=== PATIENT | male | born 1970 | race African-American/Black ===

== ENCOUNTER 2016-12-05 07:01 | Observation (INO) | payer OTHER ==
[~2016-12-05] VITALS: Ht 175.3 cm; Wt 120.0 kg
[~2016-12-05 07:01] MED LIST: Z.0.UNKNOWN
[2016-12-05 07:03] VITALS: BP 170/100; PULSE 98; RESP 20; TEMP 98.8; O2SAT 96
[2016-12-05] MEDS ORDERED: diphenhydrAMINE HCL 50 MG/ML VIAL IVP ONE ×2 (08:00→08:45)
[2016-12-05] MEDS ORDERED: SODIUM CHLORIDE 0.9% FLUSH 10 ML FLUSH IV FLUSH PRN ×2 (08:00→10:00)
[2016-12-05] MEDS ORDERED: EPINEPHrine HCL (1:1000) 1 MG/ML VIAL IM ONE ×2 (08:00→08:45)
[2016-12-05] MEDS ORDERED: methylPREDNISolone SOD SUCC 125 MG/2 ML VIAL IVP ONE (08:00)
[2016-12-05] MEDS ORDERED: FAMOTIDINE 20 MG/2 ML VIAL IV PUSH ONE (08:00)
--- NOTE | 2016-12-05 08:01 | PD ---
HPI Chief Complaint: Facial Pain or Swelling Time Seen by Provider: 07:43 Travel History International Travel<30 days: No Contact w/Intl Traveler<30days: No Traveled to known affect area: No History of Present Illness HPI This patient developed swelling of his lips yesterday at 6 PM. He took a Benadryl at 9 PM but woke up this morning with progression and worsening of the swelling. Symptoms are moderately severe. He takes lisinopril for the last 2 years but has never had a problem with it. No other new medications. No alleviating factors. Duration 13 hours. He is not sure if his tongue is swollen as well. He's never had this kind of problem. He is not having rash or hives elsewhere on his body PFSH Past Medical History Arthritis: No Asthma: No Autoimmune Disease: No Blood Disorders: No Anxiety: No Depression: No Heart Rhythm Problems: No Cancer: No Cardiovascular Problems: No High Cholesterol: Yes Chemotherapy: No Chest Pain: No Congestive Heart Failure: No COPD: No Cerebrovascular Accident: No Diabetes: Yes Patient Takes Glucophage: Yes Diminished Hearing: No Endocrine: Yes GERD: Yes Glaucoma: No Genitourinary: No Headaches: Yes Hepatitis: No Hiatal Hernia: No Hypertension: Yes Immune Disorder: No Kidney Stones: No Musculoskeletal: No Neurologic: Yes Psychiatric: Yes (PTSD) Reproductive: No Respiratory: Yes Migraines: No Myocardial Infarction: No Radiation Therapy: No Renal Failure: No Seizures: No Sickle Cell Disease: No Sleep Apnea: Yes Thyroid Disease: No Ulcer: No Past Surgical History Abdominal Surgery: No AICD: No Appendectomy: No Arteriovenous Shunt: No Cardiac Surgery: No Cholecystectomy: No Ear Surgery: No Endocrine Surgery: No Eye Surgery: No Genitourinary Surgery: No Gynecologic Surgery: No Insulin Pump: No Joint Replacement: No Oral Surgery: No Pacemaker: No Thoracic Surgery: No Family History Family Hypercholesterolemia: Yes Social History Alcohol Use: Yes Tobacco Use: Yes (ONE CIGAR DAILY) Substance Use: No Allergies-Medications (Allergen,Severity, Reaction): Coded Allergies: Lisinopril (Verified Allergy, Severe, Edema, 12/05/16) Reported Meds & Prescriptions Reported Meds & Active Scripts Active Reported Unknown Meds (Miscellaneous Medication) Misc Review of Systems General / Constitutional: No: Fever Eyes: No: Visual changes HENT: No: Headaches Cardiovascular: No: Chest Pain or Discomfort Respiratory: No: Shortness of Breath Gastrointestinal: No: Abdominal Pain Genitourinary: No: Dysuria Musculoskeletal: No: Pain Skin: Positive Other, No Rash Neurologic: No: Weakness Psychiatric: No: Depression Endocrine: No: Polydipsia Hematologic/Lymphatic: No: Easy Bruising Physical Exam Narrative GENERAL: Well-nourished, well-developed patient in no apparent distress. SKIN: Warm and dry. HEAD: Atraumatic. Normocephalic. EYES: Pupils equal and round. No scleral icterus. No injection or drainage. ENT: No nasal bleeding or discharge. Mucous membranes pink and moist. Has very advanced swelling of the upper and lower lips. Tongue looks a bit thick. Challenging to get a good visualization of the uvula due to swelling and a very prominent gag reflex. Has some swelling in the region of the chin NECK: Trachea midline. No JVD. Has some swelling in the submental region but is not firm or indurated. No redness or warmth. CARDIOVASCULAR: Regular rate and rhythm. No murmur appreciated. RESPIRATORY: No accessory muscle use. Clear to auscultation. Breath sounds equal bilaterally. GASTROINTESTINAL: Abdomen soft, non-tender, nondistended. Hepatic and splenic margins not palpable. MUSCULOSKELETAL: No obvious deformities. No clubbing. No cyanosis. No edema. NEUROLOGICAL: Awake and alert. No obvious cranial nerve deficits. Motor grossly within normal limits. Normal speech. PSYCHIATRIC: Appropriate mood and affect; insight and judgment normal. Data Data Last Documented VS Vital Signs Date Time Temp Pulse Resp B/P Pulse Ox O2 Delivery O2 Flow Rate FiO2 12/05/16 08:21 99 Room Air 12/05/16 07:29 96 18 12/05/16 07:03 98.8 170/100 Orders Ecg Monitoring (12/05/16 07:52) Iv Access Insert/Monitor (12/05/16 07:52) Oximetry (12/05/16 07:52) Diphenhydramine Inj (Benadryl Inj) (12/05/16 08:00) Methylprednisolone So Succ Inj (Solumedr (12/05/16 08:00) Famotidine Inj (Pepcid Inj) (12/05/16 08:00) Sodium Chloride 0.9% Flush (Ns Flush) (12/05/16 08:00) Epinephrine (1:1000) Inj (Adrenalin (1:1 (12/05/16 08:00) Complete Blood Count With Diff (12/05/16 07:53) Basic Metabolic Panel (Bmp) (12/05/16 07:53) Diphenhydramine Inj (Benadryl Inj) (12/05/16 08:45) Epinephrine (1:1000) Inj (Adrenalin (1:1 (12/05/16 08:45) Admit Order (Ed Use Only) (12/05/16 10:00) Labs Laboratory Tests Test 12/05/16 08:11 White Blood Count 5.2 TH/MM3 Red Blood Count 4.01 MIL/MM3 Hemoglobin 12.8 GM/DL Hematocrit 38.4 % Mean Corpuscular Volume 95.8 FL Mean Corpuscular Hemoglobin 32.0 PG Mean Corpuscular Hemoglobin 33.4 % Concent Red Cell Distribution Width 15.3 % Platelet Count 214 TH/MM3 Mean Platelet Volume 8.1 FL Neutrophils (%) (Auto) 47.2 % Lymphocytes (%) (Auto) 37.8 % Monocytes (%) (Auto) 13.2 % Eosinophils (%) (Auto) 1.5 % Basophils (%) (Auto) 0.3 % Neutrophils # (Auto) 2.5 TH/MM3 Lymphocytes # (Auto) 2.0 TH/MM3 Monocytes # (Auto) 0.7 TH/MM3 Eosinophils # (Auto) 0.1 TH/MM3 Basophils # (Auto) 0.0 TH/MM3 CBC Comment DIFF FINAL Differential Comment Sodium Level 139 MEQ/L Potassium Level 3.2 MEQ/L Chloride Level 102 MEQ/L Carbon Dioxide Level 27.6 MEQ/L Anion Gap 9 MEQ/L Blood Urea Nitrogen 11 MG/DL Creatinine 0.95 MG/DL Estimat Glomerular Filtration 103 ML/MIN Rate Random Glucose 148 MG/DL Calcium Level 9.2 MG/DL [facility] Medical Decision Making Medical Screen Exam Complete: Yes Emergency Medical Condition: Yes Medical Record Reviewed: Yes Differential Diagnosis Angioedema, allergic reaction, loss of airway Narrative Course I have reviewed the patient's electronic medical record. Patient's last visit was 2010. He has not been here for allergic reaction problems before This patient has some prominent angioedema which is spreading down to the chin and submental region of the neck and very concerning for the potential for airway loss. This makes him critically ill and requiring rapid treatment. IV placed I gave him intramuscular epinephrine and IV Solu-Medrol and IV Benadryl and IV Pepcid Extended cardiac monitoring reveals sinus rhythm without ectopy Initial oximetry is good I'm going to closely follow him over the next hour with frequent rechecks If there is any progression will need to consider intubation to secure airway CBC is normal Metabolic profile shows hypokalemia 3.2 but otherwise normal. Sugar 148 in this diabetic On reevaluation there has been some minor improvement I gave him a second dose of IV Benadryl and a second dose of intramuscular epinephrine Continued reevaluations have been done At 9:30 AM I have reevaluated him he had again and there has been continued improvement. There is less swelling of the lower lip and his tongue is back to normal. However there is still prominent enough swelling to warrant hospitalization. Patient is agreeable. Patient is no longer critically ill but will need to be monitored and get further medications. Reviewed with Dr. Webb who will admit Critical Care Narrative Aggregate critical care time was 35 minutes. Time to perform other separately billable procedures was not included in the critical care time. My time did not include minutes spent treating any other patients simultaneously or on activities that did not directly contribute to the patient's treatment. The services I provided to this patient were to treat and/or prevent clinically significant deterioration that could result in: Loss of airway, cardiopulmonary arrest, airway swelling I provided critical care services requiring my management, as noted below: Chart data review, documentation time, medication orders and management, vital sign assessments/reviewing monitor data, ordering and reviewing lab tests, ordering and interpreting/reviewing x-rays and diagnostic studies, care of the patient and discussion of the patient with the admitting physicians. Diagnosis Primary Impression: Angioedema Qualified Code: T78.3XXA - Angioedema, initial encounter Admitting Information Admitting Physician Requests: it Deion Zarco MD Dec 05, 2016 08:01
[2016-12-05 08:21] VITALS: O2SAT 99
[2016-12-05 08:26] LABS: AUTOMATED NEUTROPHIL # 2.5 TH/MM3 (1.8-7.7); BASOPHIL % 0.3 % (0.0-2.0); EOSINOPHIL # 0.1 TH/MM3 (0-0.4); EOSINOPHIL % 1.5 % (0.0-4.0); HEMATOCRIT 38.4 % (39.0-51.0); HEMO FLAGS DIFF FINAL; LYMPH % 37.8 % (9.0-44.0); MEAN CELL VOLUME 95.8 FL (80.0-100.0); MEAN CORPUSCULAR HGB CONC 33.4 % (32.0-36.0); MONO % 13.2 % (0.0-8.0); NEUT % 47.2 % (16.0-70.0); PLATELET COUNT 214 TH/MM3 (150-450); RED BLOOD COUNT 4.01 MIL/MM3 (4.50-5.90); RED CELL DISTRIBUTION WIDTH 15.3 % (11.6-17.2); WHITE BLOOD COUNT 5.2 TH/MM3 (4.0-11.0)
[2016-12-05 08:50] LABS: BICARBONATE 27.6 MEQ/L (21.0-32.0); POTASSIUM 3.2 MEQ/L (3.5-5.1)
[2016-12-05] MEDS ORDERED: NALOXONE HCL 0.4 MG/ML AMP IV PRN (10:00)
[2016-12-05] MEDS ORDERED: ONDANSETRON HCL 4 MG/2 ML VIAL IVP PRN (10:00)
--- NOTE | 2016-12-05 10:38 | HHI.HP ---
[facility] Primary Care Physician [facility] Admission Diagnosis angioedema Diagnoses: Chief Complaint: swelling of lips and face Travel History International Travel<30 Days: No Contact w/Intl Traveler <30 Da: No Traveled to Known Affected Are: No History of Present Illness This is a 46-year-old male past medical history includes type 2 diabetes, hypertension, hyperlipidemia who presented with swelling of his lower face and lips. Patient stated that at 6:30 PM yesterday he went to work and he felt numbness of left side of lisps, then felt swelling. Patient stated that he did went to the pharmacist and they stated that it was due to his lisinopril and told to take Benadryl. Patient stated that he took 2 tablets of Benadryl and the swelling went away but later he started to have swelling on the right side of the lips. Patient then took 2 more tablets of Benadryl 20 stated that resolved. Patient went to sleep and he woke up with his lips swollen again and his lower face with swelling. Patient stated that he had some shortness of breathing so he went to the emergency department. In the ED patient was given Benadryl, Solu-Medrol and epinephrine. Patient stated that swelling has decreased. He denies any sore shortness of breathing at the moment. Patient states prior from this episode he did not eat anything or tried any new products or medication. He stated that he was in the same routine and that he cannot think of anything that would elicit this episode. Patient has been on lisinopril for many years. Review of Systems Constitutional: DENIES: Diaphoretic episodes, Fatigue, Fever, Weight gain, Weight loss, Chills, Dizziness, Change in appetite, Night Sweats Endocrine: DENIES: Heat/cold intolerance, Polydipsia, Polyuria, Polyphagia Eyes: DENIES: Blurred vision, Diplopia, Eye inflammation, Eye pain, Vision loss , Photosensitivity, Double Vision Ears, nose, mouth, throat: DENIES: Tinnitus, Hearing loss, Vertigo, Nasal discharge, Oral lesions, Throat pain, Hoarseness, Ear Pain, Running Nose, Epistaxis, Sinus Pain, Toothache, Odynophagia Respiratory: DENIES: Apneas, Cough, Snoring, Wheezing, Hemoptysis, Sputum production, Shortness of breath Cardiovascular: DENIES: Chest pain, Palpitations, Syncope, Dyspnea on Exertion , PND, Lower Extremity Edema, Orthopnea, Claudication Gastrointestinal: DENIES: Abdominal pain, Black stools, Bloody stools, Constipation, Diarrhea, Nausea, Vomiting, Difficulty Swallowing, Anorexia Genitourinary: DENIES: Sexual dysfunction, Urinary frequency, Urinary incontinence, Urgency, Hematuria, Dysuria, Nocturia, Penile Discharge, Testicular Pain, Testicular Swelling Musculoskeletal: DENIES: Joint pain, Muscle aches, Stiffness, Joint Swelling, Back pain, Neck pain Integumentary: DENIES: Abnormal pigmentation, Nail changes, Pruritus, Rash Hematologic/lymphatic: DENIES: Bruising, Lymphadenopathy Immunologic/allergic: DENIES: Eczema, Urticaria Neurologic: DENIES: Abnormal gait, Headache, Localized weakness, Paresthesias, Seizures, Speech Problems, Tremor, Poor Balance Psychiatric: DENIES: Anxiety, Confusion, Mood changes, Depression, Hallucinations, Agitation, Suicidal Ideation, Homicidal Ideation, Delusions Positive for lip swelling and lower face swelling. Past Family Social History Past Medical History Hypertension, hyperlipidemia, type 2 diabetes. Past Surgical History Denying past surgical history. Reported Medications Lisinopril Metformin Allergies: Coded Allergies: Lisinopril (Verified Allergy, Severe, Edema, 12/05/16) Active Ordered Medications Current Medications Diphenhydramine HCl (Benadryl Inj) 25 mg ONCE ONCE IVP Last administered on 08:03; Start 12/05/16 at 08:00; Stop 12/05/16 at 08:01; Status DC Methylprednisolone Sodium Succinate (SoluMEDROL INJ) 125 mg ONCE ONCE IVP Last administered on 12/05/16 08:03; Start 12/05/16 at 08:00; Stop 12/05/16 at 08:01; Status DC Famotidine (Pepcid Inj) 20 mg ONCE ONCE IV PUSH Last administered on 08:02; Start 12/05/16 at 08:00; Stop 12/05/16 at 08:01; Status DC Sodium Chloride (NS Flush) 2 ml UNSCH PRN IV FLUSH FLUSH AFTER USING IV ACCESS ; Start 12/05/16 at 08:00; Stop 12/05/16 at 10:09; Status DC Epinephrine HCl (Adrenalin (1:1000) Inj) 0.5 mg ONCE ONCE IM Last administered on 12/05/16 08:02; Start 12/05/16 at 08:00; Stop 12/05/16 at 08:01 ; Status DC Diphenhydramine HCl (Benadryl Inj) 25 mg ONCE ONCE IVP Last administered on 08:53; Start 12/05/16 at 08:45; Stop 12/05/16 at 08:46; Status DC Epinephrine HCl 0.5 mg 0.5 mg ONCE ONCE IM Last administered on 12/05/16 08: 50; Start 12/05/16 at 08:45; Stop 12/05/16 at 08:46; Status DC Sodium Chloride (NS 1000 ml Inj) 1,000 ml @ 100 mls/hr Q10H IV ; Start at 10:00 Sodium Chloride (NS Flush) 2 ml UNSCH PRN IV FLUSH FLUSH AFTER USING IV ACCESS ; Start 12/05/16 at 10:00 Sodium Chloride (NS Flush) 2 ml BID IV FLUSH ; Start 12/05/16 at 21:00 Ondansetron HCl (Zofran Inj) 4 mg Q6H PRN IVP NAUSEA OR VOMITING; Start at 10:00 Naloxone HCl (Narcan Inj) 0.4 mg UNSCH PRN IV SEE LABEL COMMENTS; Start at 10:00 Methylprednisolone Sodium Succinate (SoluMEDROL INJ) 40 mg Q6H IV PUSH ; Start 12/05/16 at 14:00 Diphenhydramine HCl (Benadryl Inj) 25 mg BID IV PUSH ; Start 12/05/16 at 21:00 Family History Father and mother has type 2 diabetes. Otherwise denies any cardiac vascular disease or cancer in the family. Social History Denies any tobacco use. Patient stated that he stopped drinking Friday because his family stated that he drank too much. He would not give me any amount. Denies illicit drug use. Physical Exam Vital Signs Vital Signs Date Time Temp Pulse Resp B/P Pulse Ox O2 Delivery O2 Flow Rate FiO2 12/05/16 08:21 99 Room Air 12/05/16 07:29 96 18 12/05/16 07:03 98.8 98 20 170/100 96 Room Air Physical Exam GENERAL: This is a well-nourished, well-developed patient, in no apparent distress. SKIN: No rashes, ecchymoses or lesions. Cool and dry. HEAD: Atraumatic. Normocephalic. No temporal or scalp tenderness. EYES: Pupils equal round and reactive. Extraocular motions intact. No scleral icterus. No injection or drainage. ENT: Nose without bleeding, purulent drainage or septal hematoma. Throat without erythema, tonsillar hypertrophy or exudate. Uvula midline. Airway patent. + swelling of lips and lower face. NECK: Trachea midline. No JVD or lymphadenopathy. Supple, nontender, no meningeal signs. CARDIOVASCULAR: Regular rate and rhythm without murmurs, gallops, or rubs. RESPIRATORY: Clear to auscultation. Breath sounds equal bilaterally. No wheezes , rales, or rhonchi. GASTROINTESTINAL: Abdomen soft, non-tender, nondistended. No hepato-splenomegaly , or palpable masses. No guarding. MUSCULOSKELETAL: Extremities without clubbing, cyanosis, or edema. No joint tenderness, effusion, or edema noted. No calf tenderness. Negative Homans sign bilaterally. NEUROLOGICAL: Awake and alert. Cranial nerves II through XII intact. Motor and sensory grossly within normal limits. Five out of 5 muscle strength in all muscle groups. Normal speech. Laboratory Laboratory Tests Test 12/05/16 08:11 White Blood Count 5.2 Red Blood Count 4.01 Hemoglobin 12.8 Hematocrit 38.4 Mean Corpuscular Volume 95.8 Mean Corpuscular Hemoglobin 32.0 Mean Corpuscular Hemoglobin 33.4 Concent Red Cell Distribution Width 15.3 Platelet Count 214 Mean Platelet Volume 8.1 Neutrophils (%) (Auto) 47.2 Lymphocytes (%) (Auto) 37.8 Monocytes (%) (Auto) 13.2 Eosinophils (%) (Auto) 1.5 Basophils (%) (Auto) 0.3 Neutrophils # (Auto) 2.5 Lymphocytes # (Auto) 2.0 Monocytes # (Auto) 0.7 Eosinophils # (Auto) 0.1 Basophils # (Auto) 0.0 CBC Comment DIFF FINAL Differential Comment Sodium Level 139 Potassium Level 3.2 Chloride Level 102 Carbon Dioxide Level 27.6 Anion Gap 9 Blood Urea Nitrogen 11 Creatinine 0.95 Estimat Glomerular Filtration 103 Rate Random Glucose 148 Calcium Level 9.2 Result Diagram: 12/05/1681012/05/16810 Assessment and Plan Assessment and Plan 46-year-old male with history of hypertension, lipidemia, type 2 diabetes on lisinopril who presented with Angioedema of lips and lower face -No association with event. Patient is on lisinopril. Most likely secondary to lisinopril. -Status post epinephrine, Benadryl, Solu-Medrol given in the emergency department. -No respiratory compromise so we will continue to monitor. -Continue with Benadryl and Solu-Medrol. Hypertension, hyperlipidemia, type 2 diabetes -Resume home medication once his medical list is updated. Will discontinue lisinopril. I also do not recommend any ARS since she did have angioedema. -Most likely will probably says to lisinopril with amlodipine. DVT prophylaxis -SCDs. Code Status full Discussed Condition With patient Omaira Webb MD Dec 05, 2016 10:38
[2016-12-05] MEDS: SODIUM CHLOR 0.9% 1000 ML INJ 1,000 ML IV SCH ×2 (11:15→14:15)
[2016-12-05 12:00] VITALS: BP 158/84; PULSE 80; RESP 18; O2SAT 100
[2016-12-05] MEDS: methylPREDNISolone SOD SUCC 40 MG/1 ML VIAL IV PUSH SCH ×2 (14:00→20:42)
[2016-12-05 15:15] VITALS: BP 164/97; PULSE 91; RESP 16; TEMP 97.6; O2SAT 97
[2016-12-05 20:00] VITALS: BP 126/80; PULSE 116; RESP 16; TEMP 96.5; O2SAT 94
[2016-12-05 20:24] VITALS: PULSE 115
[2016-12-05] MEDS: SODIUM CHLORIDE 0.9% FLUSH 10 ML FLUSH IV FLUSH SCH (20:42)
[2016-12-05] MEDS: diphenhydrAMINE HCL 50 MG/ML VIAL IV PUSH SCH (20:42)
[2016-12-06] VITALS: BP 141/84; PULSE 97; RESP 16; TEMP 97.6; O2SAT 95
[2016-12-06] MEDS: SODIUM CHLOR 0.9% 1000 ML INJ 1,000 ML IV SCH (02:34)
[2016-12-06] MEDS: methylPREDNISolone SOD SUCC 40 MG/1 ML VIAL IV PUSH SCH ×2 (02:34→09:12)
[2016-12-06 04:00] VITALS: BP 152/92; PULSE 96; RESP 16; TEMP 97.3; O2SAT 94
[2016-12-06 08:00] VITALS: BP 152/101; PULSE 100; RESP 18; TEMP 97.7; O2SAT 99
[2016-12-06 08:09] VITALS: PULSE 98
[2016-12-06] MEDS: diphenhydrAMINE HCL 50 MG/ML VIAL IV PUSH SCH (09:12)
[2016-12-06] MEDS: SODIUM CHLORIDE 0.9% FLUSH 10 ML FLUSH IV FLUSH SCH (09:13)
[2016-12-06] MEDS ORDERED: PRED50 PO (10:12)
[2016-12-06] MEDS ORDERED: AMLO10 PO (10:12)
[2016-12-06] MEDS ORDERED: BENA25TA3 PO (10:12)
--- NOTE | 2016-12-06 10:12 | HHI.DCPOC ---
Discharge Care Plan Diagnosis: (1) Angioedema Goals to Promote Your Health * To prevent worsening of your condition and complications * To maintain your health at the optimal level Directions to Meet Your Goals Take your medications as prescribed Follow your dietary instruction Follow activity as directed Keep your appointments as scheduled Take your immunizations and boosters as scheduled If your symptoms worsen call your PCP, if no PCP go to Urgent Care Center or Emergency Room Smoking is Dangerous to Your Health. Avoid second hand smoke Call the 24-hour hour crisis hotline for domestic abuse at Omaira Webb MD Dec 06, 2016 10:12
--- NOTE | 2016-12-06 10:13 | HHI.DS ---
Discharge Summary Admission Date Dec 05, 2016 at 10:02 Discharge Date: Dec 06, 2016 Admitting Diagnosis angioedema (1) Angioedema ICD Code: T78.3XXA Diagnosis: Principal (2) Hypertension ICD Code: I10 Diagnosis: Secondary Procedures none Brief History - From Admission This is a 46-year-old male past medical history includes type 2 diabetes, hypertension, hyperlipidemia who presented with swelling of his lower face and lips. Patient stated that at 6:30 PM yesterday he went to work and he felt numbness of left side of lisps, then felt swelling. Patient stated that he did went to the pharmacist and they stated that it was due to his lisinopril and told to take Benadryl. Patient stated that he took 2 tablets of Benadryl and the swelling went away but later he started to have swelling on the right side of the lips. Patient then took 2 more tablets of Benadryl 20 stated that resolved. Patient went to sleep and he woke up with his lips swollen again and his lower face with swelling. Patient stated that he had some shortness of breathing so he went to the emergency department. In the ED patient was given Benadryl, Solu-Medrol and epinephrine. Patient stated that swelling has decreased. He denies any sore shortness of breathing at the moment. Patient states prior from this episode he did not eat anything or tried any new products or medication. He stated that he was in the same routine and that he cannot think of anything that would elicit this episode. Patient has been on lisinopril for many years. CBC/BMP: 12/05/16 0811 12/05/16 0811 Significant Findings Laboratory Tests Test 12/05/16 08:11 Red Blood Count 4.01 MIL/MM3 (4.50-5.90) Hemoglobin 12.8 GM/DL (13.0-17.0) Hematocrit 38.4 % (39.0-51.0) Monocytes (%) (Auto) 13.2 % (0.0-8.0) Potassium Level 3.2 MEQ/L (3.5-5.1) Random Glucose 148 MG/DL (74-106) Pt update on day of discharge f/u for angioedema. patient back to his normal self. He is ready to to home. denied any SOB. he stated swelling has resolved. no complaints. Hospital Course 46-year-old male with history of hypertension, lipidemia, type 2 diabetes on lisinopril who presented with Angioedema of lips and lower face -No association with event. Patient is on lisinopril. Most likely secondary to lisinopril. -Status post epinephrine, Benadryl, Solu-Medrol given in the emergency department. -No respiratory compromise. -patient given Benadryl and Solu-Medrol and symptoms resolved. Hypertension, hyperlipidemia, type 2 diabetes -Patient did not know his home medication so that was not updated. lisinopril d/ c due to angioedema and amlodipine started. Pt Condition on Discharge: Good Discharge Disposition: Discharge Home Discharge Time: <= 30 minutes Discharge Instructions DIET: Follow Instructions for: Heart Healthy Diet, Diabetic Diet Activities you can perform: Regular-No Restrictions Follow up Referrals: PCP Follow-up - 1 Week New Medications: Diphenhydramine (Benadryl Allergy) 25 Mg Tab 25 MG PO Q6H PRN swelling or rash #25 Ref 0 TAB Prednisone (Prednisone) 50 Mg Tab 50 MG PO DAILY swelling #4 Ref 0 TAB Amlodipine (Norvasc) 10 Mg Tab 10 MG PO DAILY hypertension #30 Ref 0 TAB Discontinued Medications: Miscellaneous (Unknown Meds) Omaira Goins MD Dec 06, 2016 10:13
== END 2016-12-06 11:25 | disposition home or self-care (01) ==
LOC: NEPE 07:01 → NEDA 10:02 → INTOOBSV 10:02 → HOCA 15:07
PROVIDERS: ADMIT Family Medicine; ATTEND Family Medicine
DX: T78.3XXA Angioneurotic edema, initial encounter (principal); I10 Essential (primary) hypertension; E78.5 Hyperlipidemia, unspecified; E11.9 Type 2 diabetes mellitus without complications; E78.00 Pure hypercholesterolemia, unspecified; K21.9 Gastro-esophageal reflux disease without esophagitis; F17.200 Nicotine dependence, unspecified, uncomplicated; Z88.8 Allergy status to other drugs, medicaments and biological substances; Z79.84 Long term (current) use of oral hypoglycemic drugs
CPT/HCPCS: 80048; 85025; 96372; 96374; 96375; 96376; 99285; G0378; J0171; J1200; J2920; J2930; J7030